=== PATIENT | male | born 1945 | race Caucasian/White ===

== ENCOUNTER → 2016-09-25 | Outpatient (CLI) | payer MEDICARE, BC ==
--- NOTE | 2016-09-25 14:44 | RADRPT ---
PROCEDURE: XR Hip. CLINICAL INDICATION: Bilateral hip pain. TECHNIQUE: AP and frog lateral views of the bilateral hips were performed. COMPARISON: None. FINDINGS: There is postoperative change related to prior ORIF of a proximal right femoral fracture with lateral plate and screw and dynamic hip screw without evidence of hardware loosening or failure . There is no acute fracture dislocation. There is moderate osteoarthritis of the hip joints bilat erally. The alignment is normal and the soft tissues unremarkable. The osseous mineralization is w ithin normal limits. There is no radiopaque foreign body. IMPRESSION: 1. Negative for acute fracture dislocation. Prior right proximal femoral ORIF without evidence of c omplication. 2. Moderate osteoarthritis of the hip joints bilaterally. RPTAT: HLBP .Aramis Degroot MD, Date Time Electronically viewed and signed by .Aramis Degroot MD, MD on 09/25/2016 14:44 .P/
== END | disposition home or self-care (01) ==
LOC: HKI 14:17
PROVIDERS: ATTEND Orthopaedic Surgery
DX: M25.552 Pain in left hip (principal); M70.62 Trochanteric bursitis, left hip
CPT/HCPCS: 20610; 73523; G0463